=== PATIENT | male | born 1975 | race Caucasian/White ===

== ENCOUNTER 2020-08-29 13:48 | Emergency (ER) | payer OTHER, SELFPAY ==
--- NOTE | ~2020-08-29 | XR_ITS ---
XR chest 1V portable DATE: 08/29/2020 14:47 INDICATION: Fever TECHNIQUE: Portable AP chest on 08/29/2020 at 1445 hours COMPARISON: None FINDINGS: Normal heart size. No hilar or mediastinal enlargement. There is ill-defined density overlying the left upper lung and left lower lung mesa, suggesting lef t lung infiltrates. The right lung is clear. No pleural effusion. No hilar or mediastinal enlargement. IMPRESSION: Patchy left lung infiltrates are suggested, possibly pneumonia; follow up chest radiograp hs are recommended to assure clearing and exclude any pulmonary mass lesion Reviewed, dictated and finalized at location B. IMPRESSION: Patchy left lung infiltrates are suggested, possibly pneumonia; fol low up chest radiographs are recommended to assure clearing and exclude any pul monary mass lesion
[2020-08-29 13:57] VITALS: BP 143/82; PULSE 72; RESP 18; TEMP 36.1; O2SAT 98
--- NOTE | 2020-08-29 16:16 | ED.GENADULT ---
HPI - General Adult General Chief complaint: Upper Respiratory Infection Stated complaint: sick Time Seen by Provider: 08/29/20 14:35 Source: patient and RN notes reviewed Mode of arrival: ambulatory Limitations: no limitations History of Present Illness HPI narrative: Patient is a 44-year-old male who presents to emergency department for evaluation fever chills body aches for the last 3 days. Patient denies any other complaints has not taken anything for his symptoms. Patient denies any vomiting diarrhea URI symptoms patient notes he was exposed to a COVID-19 individual and has not been vaccinated himself. Related Data Allergies Allergy/AdvReac Type Severity Reaction Status Date / Time No Known Allergies Allergy Mild Unverified 08/31/08 16:10 Review of Systems Review of Systems: All systems reviewed & are unremarkable except as noted in HPI and below PMFSH Social History Social History (Updated 08/29/20 @ 16:19 by Juan Miguel Ledezma PA-C) Smoking status: Current every day smoker Exam Narrative: Exam Narrative: GENERAL: Well-appearing, well-nourished, and in no acute distress. HEAD: Normocephalic, atraumatic. EYES: PERRLA and EOMI. ENT: Nares clear, no rhinorrhea or epistaxis. Mucous membranes moist. Oropharynx without tonsillar hypertrophy exudate or other lesions. CHEST: Clear to auscultation. No respiratory distress. No wheezes rales or rhonchi HEART: Regular rate and rhythm. No murmur heard. Normal peripheral pulses. ABDOMEN: Soft, nontender, nondistended EXTREMITIES: Normal range of motion. No edema. SKIN: Warm, dry, no rash. NEURO: No focal deficits. Alert and oriented x3. Cranial nerves II through XII grossly intact PSYCH: Normal mood and affect. Course Course Emergency Course: Patient in the room no distress has been swabbed for Covid will be treated for pneumonia given the chest x-ray findings he is nontoxic afebrile will be managed on an outpatient basis Vital Signs Vital signs: Vital Signs Temperature 97 F L 08/29/20 13:57 Pulse Rate 72 08/29/20 13:57 Respiratory Rate 18 08/29/20 13:57 Blood Pressure 143/82 H 08/29/20 13:57 Pulse Oximetry 98 08/29/20 13:57 Temperature 97 F L 08/29/20 13:57 Pulse Rate 72 08/29/20 13:57 Respiratory Rate 18 08/29/20 13:57 Blood Pressure 143/82 H 08/29/20 13:57 Pulse Oximetry 98 08/29/20 13:57 Medical Decision Making MDM Narrative Medical decision making narrative: Patient swabbed for COVID-19 will be discharged on an outpatient basis is afebrile nontoxic-appearing no distress. Patient aware of his findings has been advised to get a pulse oximeter to watch his oxygen and will follow with primary care to obtain his COVID-19 results Vital Signs Vital Signs: Vital Signs Temperature 97 F L 08/29/20 13:57 Pulse Rate 72 08/29/20 13:57 Respiratory Rate 18 08/29/20 13:57 Blood Pressure 143/82 H 08/29/20 13:57 Pulse Oximetry 98 08/29/20 13:57 Temperature 97 F L 08/29/20 13:57 Pulse Rate 72 08/29/20 13:57 Respiratory Rate 18 08/29/20 13:57 Blood Pressure 143/82 H 08/29/20 13:57 Pulse Oximetry 98 08/29/20 13:57 Lab Data Labs: Lab Results 08/29/20 Range/Units 15:38 SARS-CoV-2 RNA (RT-PCR) Pending Imaging Data Radiologist's impression: ITS Impressions Chest X-Ray 08/29/20 14:51 IMPRESSION: Patchy left lung infiltrates are suggested, possibly pneumonia; follow up chest radiographs are recommended to assure clearing and exclude any pulmonary mass lesion Discharge Plan Discharge Clinical Impression: Pneumonia Patient Disposition: Home, Self-Care Condition: Stable Instructions: Antibiotic Form, Pneumonia (ED) Additional Instructions: Follow up with your primary care provider within 1-2 days to obtain your COVID-19 results. Go to ER for shortness of breath, difficulty breathing, chest pain, fever/chills, weakness, nauseau/vomitting, etc. or any other con
[2020-08-29 16:48] VITALS: PULSE 82; RESP 16; O2SAT 98
[2020-08-30 16:35] LABS: SARS-CoV-2 RNA PCR Positive
== END 2020-08-29 16:49 | disposition home or self-care (01) ==
PROVIDERS: Emergency Medicine Emergency Medical Services; Emergency Provider Emergency Medicine
DX: U07.1 COVID-19 (principal); J12.82 Pneumonia due to coronavirus disease 2019; F17.210 Nicotine dependence, cigarettes, uncomplicated
CPT/HCPCS: 71045; 99283; C9803; U0003; U0005

== ENCOUNTER → 2020-09-12 11:10 | Outpatient (CLI) | payer OTHER, SELFPAY ==
--- NOTE | ~2020-09-12 | XR_ITS ---
EXAMINATION: XR chest 2V 09/12/2020 11:29 INDICATION: Follow-up pneumonia PROCEDURE: 2 view chest COMPARISON: 07/30/2020 FINDINGS: The lungs are clear. The cardiomediastinal silhouette is within normal limits. There are no pleural effusions. There is no pneumothorax suspected. IMPRESSION: 1: NO ACUTE CARDIOPULMONARY DISEASE. Reviewed, dictated and finalized at location A.
== END ==
PROVIDERS: PCP Emergency Medicine; Visit Provider Emergency Medicine
DX: J18.9 Pneumonia, unspecified organism (principal)
CPT/HCPCS: 71046

== ENCOUNTER → 2020-09-15 06:59 | Outpatient (CLI) | payer OTHER, SELFPAY ==
[2020-09-15 18:52] LABS: SARS-CoV-2 RNA PCR Positive
== END ==
PROVIDERS: PCP Emergency Medicine; Visit Provider Emergency Medicine
DX: U07.1 COVID-19 (principal)
CPT/HCPCS: C9803; U0003; U0005

== ENCOUNTER 2020-11-13 08:53 | Outpatient (CLI) | payer OTHER, SELFPAY ==
--- NOTE | ~2020-11-13 | US_ITS ---
EXAMINATION: US right upper quadrant EXAM DATE: 11/13/2020 09:15 INDICATION: Elevated ALT TECHNIQUE: Multiple grayscale and Doppler images of the abdomen right upper quadrant were obtained (b y a technologist who performed the scan) and subsequently reviewed. There is no prior study for jaylyn shah. FINDINGS: The pancreatic head and body are normal in appearance. The pancreatic tail is not visualized. Mildl y echogenic liver parenchyma, hepatic steatosis. There are no focal liver lesions identified. Ther e is no evidence of intrahepatic biliary duct dilation. Portal venous flow was seen in the hepatoped al, normal direction and has normal Doppler waveform. No right-sided hydronephrosis. Common bile duct measures 3 mm, which is normal. The gallbladder wall is normal in thickness, with ex pected amount of distention. No sonographic evidence of pericholecystic fluid. There is no cholelit hiases. Technologist performing exam reports patient did not demonstrate sonographic Ann's sign. Please note that this sign is less reliable in patients who have received pain medication. IMPRESSION: Mild hepatic steatosis. Reviewed, dictated and finalized at location A. IMPRESSION: Mild hepatic steatosis.
== END 2020-11-13 08:54 | disposition home or self-care (01) ==
LOC: CHSIMG 08:55
PROVIDERS: PCP Emergency Medicine; Visit Provider Emergency Medicine
DX: R79.89 Other specified abnormal findings of blood chemistry (principal)
CPT/HCPCS: 76705

== ENCOUNTER 2021-08-07 13:19 | Emergency (ER) | payer OTHER, SELFPAY ==
--- NOTE | ~2021-08-07 | XR_ITS ---
EXAMINATION: XR wrist RT min 3V DATE: 08/07/2021 13:59 INDICATION: Right wrist injury. Fall. TECHNIQUE: 3 views of right wrist were obtained. COMPARISON: None. FINDINGS: There is a fracture at the carpometacarpal joint on the lateral view that is likely a fract ure of dorsal base of third metacarpal with 2 mm displacement. Other joint spaces are normal. IMPRESSION: 1. Fracture of dorsal base of third metacarpal. Reviewed, dictated and finalized at location A.
--- NOTE | ~2021-08-07 | XR_ITS ---
EXAMINATION: XR forearm RT 2V INDICATION: Right forearm pain TECHNIQUE: Two views of the right forearm are obtained. COMPARISON: None available FINDINGS: There is no fracture of the radius or ulna. Alignment at the wrist and elbow is normal. The re is a questionable heterotopic ossification projecting near the carpometacarpal junction on the lat eral view. IMPRESSION: 1. No acute osseous abnormality of the radius or ulna. 2. Possible fracture near the carpometacarpal junction on the lateral view. Dedicated wrist radiograp hs are recommended. Reviewed, dictated and finalized at location A. IMPRESSION: 1. No acute osseous abnormality of the radius or ulna. 2. Possible fracture near the carpometacarpal junction on the lateral view. Ded icated wrist radiographs are recommended.
--- NOTE | ~2021-08-07 | XR_ITS ---
EXAMINATION: XR hand RT min 3V INDICATION: Right hand pain TECHNIQUE: Three views of the right hand are obtained. COMPARISON: None available FINDINGS: There is soft tissue swelling of the hand. Bone alignment is normal. No fracture is identif ied. The joint spaces are normal. No radiopaque foreign body is seen. IMPRESSION: 1. Diffuse soft tissue swelling of the hand without acute osseous abnormality identified. Reviewed, dictated and finalized at location A. IMPRESSION: 1. Diffuse soft tissue swelling of the hand without acute osseous abnormality i dentified.
--- NOTE | 2021-08-07 13:26 | ED.UPPEXIN ---
HPI - Extremity Injury (Upper) General Chief Complaint: Extremity Injury, Upper Stated Complaint: Right Hand Pain Time Seen by Provider: 08/07/21 13:28 Source: patient and RN notes reviewed Mode of arrival: ambulatory Limitations: no limitations History of Present Illness HPI narrative: 45-year-old male presents to the [facility] with complaints of right forearm, wrist and hand pain after tripping and falling onto that hand yesterday. Patient states that he was running tripped, landed on a fist yesterday. Decreased range of motion of the 5 fingers due to pain and swelling. Swelling noted to the dorsal aspect of right hand. MD complaint: injury to: right and hand Related Data Home Medications Medication Instructions Recorded Confirmed aspirin 81 mg chewable tablet tablet 08/07/21 hydrochlorothiazide 25 mg tablet tablet 08/07/21 naproxen 500 mg tablet tablet 08/07/21 nitroglycerin 0.4 mg sublingual tablet 08/07/21 tablet Allergies Allergy/AdvReac Type Severity Reaction Status Date / Time No Known Allergies Allergy Mild Verified 08/07/21 13:27 Review of Systems Review of Systems: All systems reviewed & are unremarkable except as noted in HPI and below Constitutional: Constitutional: Reports no additional constitutional complaints, Denies chills and Denies fever(s) Eyes: Eyes: Reports no additional eye complaints ENT: Reports system reviewed and no additional complaints, except as documented Cardiovascular: Cardiovascular: Reports no additional cardiovascular complaints Respiratory: Respiratory: Reports no additional respiratory complaints Gastrointestinal: Gastrointestinal: Reports no additional gastrointestinal complaints Musculoskeletal: Musculoskeletal: Reports as per HPI, Reports arthralgias and Reports joint swelling Integumentary/Breasts: Skin/Breast: Reports system reviewed and no additional complaints, except as docu Neurologic: Reports system reviewed and no additional complaints, except as documented Psychiatric: Psychiatric: Reports no additional psychiatric complaints Allergic/Immunologic: Allergic/Immunologic: Reports no additional allergic/immunologic complaints [facility] Past Medical History Medical History (Updated 08/07/21 @ 19:35 by Venessa Gomez APRN) No significant medical problems Surgical History Surgical History (Updated 08/07/21 @ 19:33 by Venessa Gomez APRN) No pertinent past surgical history Social History Social History Smoking status: Current every day smoker Comments At the time of my signature, I reviewed and agree with the nursing past medical, surgical, social, and family history. There is no relevant family history pertinent to the patient complaint. Exam Const: General: healthy appearing, no acute distress and alert Nutritional Appearance: well nourished and obese Orientation/consciousness: patient oriented x3 Limitations: no limitations HENMT: Head: normal to inspection Ears: external ears normal Eyes: General: appearance normal, both eyes and all related structures Pupils: Equal, round and reactive pupils present Neck: Neck: normal visual inspection, no lymphadenopathy and no meningeal signs Chest: Chest palpation & inspection: normal inspection of the chest Resp: Effort & Inspection: normal respiratory effort and no use of accessory muscles Auscultation: clear to auscultation bilaterally, no crackles, no rales, no rhonchi and no wheezes Cardio: Rate: regular rate Rhythm: regular rhythm Back/Spine/Pelvis: Cervical Spine: normal cervical lordosis Thoracic/Lumbar Spine: thoracic and lumbar spine normal to inspection Skin: General skin exam: normal color Rashes: no rashes Wounds: no wounds Neuro: General: patient oriented x3, moves all extremities, no meningeal signs and no focal motor deficits Cranial nerves: Yes Equal, round and reactive pupils present Speech: normal speech Gai
[2021-08-07 13:28] VITALS: BP 130/66; PULSE 89; RESP 20; TEMP 36.7; O2SAT 97
== END 2021-08-07 14:43 | disposition home or self-care (01) ==
PROVIDERS: Emergency Provider Nurse Practitioner
DX: S62.312A Displaced fracture of base of third metacarpal bone, right hand, initial encounter for closed fracture (principal); W01.0XXA Fall on same level from slipping, tripping and stumbling without subsequent striking against object, initial encounter; F17.200 Nicotine dependence, unspecified, uncomplicated
CPT/HCPCS: 29125; 73090; 73110; 73130; 99214; A4565; G0463

== ENCOUNTER 2021-08-25 10:11 | Outpatient (CLI) | payer OTHER, SELFPAY ==
--- NOTE | ~2021-08-25 | CT_ITS ---
EXAMINATION: CT wrist RT wo con DATE: 08/25/2021 10:36 INDICATION: Fracture of hamate and third metacarpal base. TECHNIQUE: Computed tomography (CT) of the right wrist was performed without intravenous contrast. Au tomated exposure control and iterative reconstruction technique were employed. The dose-length produc t was 531.78 mGy-cm. COMPARISON: Right wrist radiograph 08/07/2021 FINDINGS: There is a fracture of dorsal base of third metacarpal involving approximately 1/3 of the a rticular surface. The dorsal fracture fragment demonstrates 2 mm dorsal displacement and mild rotatio n. There is a punctate chip fracture of dorsal base of second metacarpal. There are chip fractures of the dorsal distal aspects of the capitate and hamate. There is mild osteoarthritis of first carpomet acarpal joint and first metacarpophalangeal joint. IMPRESSION: 1. Fractures of the dorsal bases of second and third metacarpals and the dorsal distal aspects of cap itate and hamate. Reviewed, dictated and finalized at location A. IMPRESSION: 1. Fractures of the dorsal bases of second and third metacarpals and the dorsal distal aspects of capitate and hamate.
== END 2021-08-25 10:12 | disposition home or self-care (01) ==
LOC: ANHIMG 10:16
PROVIDERS: Visit Provider Plastic Surgery
DX: S62.141D Displaced fracture of body of hamate [unciform] bone, right wrist, subsequent encounter for fracture with routine healing (principal); X58.XXXD Exposure to other specified factors, subsequent encounter
CPT/HCPCS: 73200

== ENCOUNTER 2021-09-11 00:15 | Day surgery (SDC) | payer OTHER, SELFPAY ==
[2021-09-07 14:05] VITALS: BMI 40.6
--- NOTE | 2021-09-07 14:10 | PC.NURSE ---
Report to the Outpatient Waiting Room, entrance under the green pavilion located off [facility], at time 0600 on date 09/11/21. OR Time: 0730. - You and your visitor will be asked a series of questions to screen for COVID 19 for your protection. - Only one visitor is allowed at this time. - The patient visitor is requested to leave or wait in car when not with patient. - A mask is required within the hospital. Patients may have clear liquids (water, carbonated beverages, clear teas, apple juice) until 3 hours prior to surgery with a maximum of 20 ounces. - No food from midnight until time of surgery Take the following medications with a SIP of water the morning of surgery: N/A Medications to discontinue per physician: N/A Date to take last dose: N/A Please no make-up, nail bengali, hairspray, perfume, deodorant, or body powder the day of surgery. No jewelry (including any body piercings) or valuables the day of surgery, leave them at home. Please take a shower or bath the night before, or the morning of, surgery with an antibacterial soap. Wear comfortable, loose fitting clothing. - Jewelry must be removed prior to entering the operating room. Rings and piercings that are not removed may be cut off. - The hospital will not accept responsibility for valuables. - Please leave all valuables, including medications, at home the day of surgery. If you are going home after surgery, a licensed production truck driver must drive you home. - NO public transportation without another adult. - We recommend that an adult stay with you for 24 hours following discharge. - We also recommend that you do not drive, make important decision, drink alcoholic beverages, or take any drugs that were not prescribed by your health care provider for at least 24 hours after your discharge time. Follow any additional instructions given to you from your surgeon. If you or anyone in your household have experienced Covid symptoms in the past week, please notify your surgeon or the nurse liaison at the phone number below for possible testing. Telephone instructions given to PT - NORAH CONTRERAS and asked if any additional questions and then verbalized understanding. Patient advised to call surgeon office or pre surgery nurse liaison [phone] if any additional questions.
[2021-09-11] VITALS (7 sets, daily range): BP systolic 115–134; BP diastolic 57–91; PULSE 69–91; RESP 12–20; TEMP 36.3–36.6; O2SAT 94–98
--- NOTE | ~2021-09-11 | XR_ITS ---
EXAMINATION: XR surgery orthopedic DATE: 09/11/2021 11:10 INDICATION: Right hand fracture for open reduction and internal fixation. TECHNIQUE: Single fluoroscopic spot images and 20 radiographs of the right hand were obtained during procedure performed by Dr. Negrete. Radiologist was not present for the imaging or procedure. The amoun t of fluoroscopy time used during this procedure was 1.2 minutes. COMPARISON: Radiographs dated 08/07/[address] dated 09/04/2021 FINDINGS: Initial images demonstrate a needle marking the site of the previous noted mildly displaced fracture at the base of the third metacarpal. Subsequent images demonstrate open reduction and internal fixati on of the fracture with a dorsal plate and screws. Alignment appears near-anatomic at the conclusion of the fixation also assessment is somewhat limited due to superimposition of multiple bony shadows r egardless of the plantar projection. <1 mm residual lucency along the fracture plane. Additional tiny fractures are seen noted along the dorsal rim of the distal articular surface of the capitate and perez mate are unable to be visualized in the current study. No other fractures identified. Mild osteoarthr itis at the first carpometacarpal, first metacarpophalangeal and a few interphalangeal joints. IMPRESSION: 1. Near-anatomic alignment post open reduction and dorsal plate and screw fixation of an intra-articu lar fracture at the base of the third metacarpal. Reviewed, dictated and finalized at location A. IMPRESSION: 1. Near-anatomic alignment post open reduction and dorsal plate and screw fixat ion of an intra-articular fracture at the base of the third metacarpal.
[2021-09-11] MEDS: ACETAMINOPHEN 500 MG TABLET 1000 MG PO (06:15)
--- NOTE | 2021-09-11 06:44 | WPDANESEPPF ---
Anes - Initial Pre Proc Eval Procedure: Operation Date: 09/11/21 07:30 Proposed Procedures p Open Reduction Internal Fixation Right Third Metacarpal Base - Edvin Negrete MD Date/Time: 09/11/21 06:44 Surgeon: Edvin Negrete MD Pre Op Diagnosis: fx rt 3rd metacarpal base Patient Data Age: 46 Gender: M Height: 1.83 m Weight: 136.08 kg Allergies Allergy/AdvReac Type Severity Reaction Status Date / Time No Known Allergies Allergy Mild Verified 09/07/21 14:04 Home Medications Medication Instructions Recorded Confirmed Type No Home Medications 09/07/21 09/11/21 History Patient hx anesthesia problems: none Family hx anesthesia problems: none Results Review: All pre-operative results and documents have been reviewed as part of the pre-operative evaluation. [facility] Past Medical History Medical History (Updated 09/11/21 @ 06:45 by Srini De La Rosa MD) GERD (gastroesophageal reflux disease) Morbid obesity No significant medical problems Smoker Snoring Social History Social History Smoking packs per day: 1 Smoking cigarettes per day: 20.0 Years smoked: 18 Smoking pack-years: 18.00 Smoking status: Current every day smoker Tobacco type: cigarettes Alcohol intake: current Alcohol use details: 4/MONTH Substance use: current Substance use type: marijuana Living arrangements: with family Spiritual care concerns: No Anes - Eval Final PreProcedure Day of Procedure 09/11/21 06:44 Patient weight: morbidly obese Heart: regular rate and rhythm Lungs: clear to auscultation Airway: Mallampati scale class II Neurological: alert and oriented Last oral intake: >/= 8 hours ASA classification: III Emergent: no Anesthesia type and monitoring: general LMA and standard monitoring Results Review: All pre-operative results and documents have been reviewed as part of the pre-operative evaluation. Informed Consent: The patient's anesthetic plan and its attendant risks and benefits were discussed with the patient/family/POA. Questions were solicited and answers provided to the satisfaction of the patient/family/POA.
[2021-09-11] MEDS: LACTATED RINGERS 1,000 ML 30 ML IV CONT ×2 (07:11→10:52)
[2021-09-11] MEDS: KETOROLAC 15 MG/ML VIAL (*BKC) IV PUSH (07:11)
--- NOTE | 2021-09-11 07:19 | WPDHPUPDATE1 ---
History and Physical Update Update Date/Time: 09/11/21 07:19 History and Physical has been reviewed, including an updated exam of the patient. There are NO changes in the patient's condition. Risks, benefits, and alternatives have been discussed and questions answered. Patient agrees to proceed with procedure.
[2021-09-11] MEDS: ceFAZolin SODIUM 1 GM VIAL IV PUSH (07:25)
[2021-09-11] MEDS: ceFAZolin 2 GM/D5W 50 ML 2 GM/50 ML BAG IVPB (07:25)
[2021-09-11] MEDS: LIDO 1%/EPINEPHRINE 1:100,000 10 ML VIAL INFILTRATE (10:29)
[2021-09-11] MEDS: BUPIVACAINE/EPINEPHRINE 0.25% 50 ML VIAL INFILTRATE (10:42)
--- NOTE | 2021-09-11 11:02 | PM.OP ---
Procedure Note - Brief Procedure Note - Brief Date of procedure: 09/11/21 Pre-op diagnosis: fx rt 3rd metacarpal base Post-op diagnosis: Same Procedure performed: Open reduction with fixation the right 3rd metacarpal base fracture Implants: Modular handset 2 mm Y plate with 5 screws Anesthesia: BLAZEA Surgeon: Edvin Negrete MD Sheep Shearer: Axia Estimated blood loss (mL): 20 Tourniquet time (min): 130 Drains: No Packing: No Pathology: None sent Complications: No immediate complications Condition: Stable Disposition: PACU
[2021-09-11] MEDS: fentaNYL CITRATE INJ (*CRX) 100 MCG/2 ML VIAL 25 MCG IV PUSH ×3 (11:03→11:09)
[2021-09-11] MEDS: oxyCODONE HCL (*CRX) 5 MG TAB IR PO (11:54)
--- NOTE | 2021-09-11 12:12 | SUR.PHASEII ---
PT SAID HIS DRESSINGS WERE A LITTLE TIGHT. THIS NURSE LIGHTLY LOOSENED HIS DRESSING, PT SAID IT FELT BETTER AFTER DRESSING ADJUSTMENT.
--- NOTE | 2021-09-11 12:46 | W.PM.PROC2 ---
Procedure Note - Detailed Date of Procedure 09/11/21 Pre-op Diagnosis fx rt 3rd metacarpal base Post-op Diagnosis Same Procedure Performed Open reduction with internal plate fixation of the closed displaced fracture of the right 3rd metacarpal base Surgeon Edvin Negrete MD Wood Drilling Machine Operator Kateryna Anesthesia General Description of Procedure The right dorsal hand fracture site was marked on the patient's hand in the holding area. He was then taken into the operating room where he was placed supine on the operating table. General anesthesia was administered. The right upper extremity was prepped and draped in the usual fashion. The image intensifier was brought to the hand table and the fracture site was identified with the use of 25 gauge needle. The fracture the was not clearly appreciated in these views. But the CT scan been reviewed just prior to the case. The area was locally infiltrated with 1% lidocaine with epinephrine. A transverse incision was marked and chosen for access. Later in the case a T extension running distally was included. The extremity was exsanguinated with a 4 in Sorin wrap and the tourniquet inflated to 250 mmHg. Dissection between the tendons over the 3rd metacarpal revealed a small hematoma the capsule was incised and cleared away from the base of the 3rd metacarpal. The fracture was identified running transversely across the dorsal base of the 3rd metacarpal and extended vertically to a volar lip on the palmar cortex of the shaft. The metacarpal capitate joint was visible. I did not encounter additional fracture fragments. Fibrous tissue from within the fracture was cleared with a 15 blade and Taiwo imelda. The fragment remained well attached to soft tissue proximally. I chose the 2 mm plate from modular hand tray. The two hole Y end of the plate was fixed to the fracture fragment with 2 2 mm screws. I had switched from C-arm imaging to intraoperative digital x-rays which showed far better detail. Nevertheless I had trouble interpreting the radiologic findings and the intraoperative findings in view of the previously reviewed CT scan. At approximately the 90 minutes yareli the tourniquet was released and I left to consult with Dr. Schmitz in Radiology. We felt that the previous x-rays did in fact represent the operative findings. The new findings also seem to confirm that the 2 screws that had been placed by that time were in the fracture fragment and not impinging upon the capitate.Three screws were then placed in the metacarpal shaft the middle 1 was positioned distally to compress the fracture as the screw tightened. This appeared to be a successful maneuver. Two additional bicortical screws were placed. Passive flexion and extension of the wrist was not impeded by our intervention. The surgical site was irrigated the tourniquet was released a 2nd time at approximately 34 minutes. No sutures were placed in the capsule. The wound was repaired with interrupted intradermal 4-0 Monocryl sutures. A soft padded bandage was applied around metacarpals and wrist secured with Coban. The patient was awakened and discharged from the operating room in stable condition. The patient had been given 1000 mg of Tylenol p.o. preoperatively along with 15 mg of Toradol And 3 g of Ancef. Prior to application of the bandage 10 milliliter of 0.25% Marcaine epinephrine were infiltrated at and proximal to the operative site. E prescriptions were completed for ibuprofen 600 mg Q 6 hours and Percocet 5/325 Q 6 hours 10 as needed for pain Implants a tailored 6 hole 2 mm plate and 6 2 mm screws Estimated Blood Loss 20 Tourniquet Time 134 Drains No Packing No Pathology None sent Complications No immediate complications Condition Stable Disposition PACU
== END 2021-09-11 12:22 | disposition home or self-care (01) ==
PROVIDERS: PCP Emergency Medicine; Visit Provider Plastic Surgery
PROC: (CPT 26615; principal; 2021-09-11 07:30)
DX: S62.312A Displaced fracture of base of third metacarpal bone, right hand, initial encounter for closed fracture (principal); W22.09XA Striking against other stationary object, initial encounter; F17.210 Nicotine dependence, cigarettes, uncomplicated; F12.90 Cannabis use, unspecified, uncomplicated; E66.01 Morbid (severe) obesity due to excess calories; Z68.41 Body mass index [BMI] 40.0-44.9, adult
CPT/HCPCS: 26615; 99199; A9270; C1713; J0690; J1100; J1885; J2250; J2405; J2704; J3010; J7120

== ENCOUNTER 2021-11-06 12:30 | Outpatient (RCR) | payer OTHER, SELFPAY ==
--- NOTE | 2021-10-10 10:18 | OTOPEVAL ---
OCCUPATIONAL THERAPY INITIAL EVALUATION REPORT 10/10/21 Thank you for referring Bossman López to [facility].? The patient is scheduled to be seen for therapy? 1x/week for 4 weeks. Please review, sign, date and return this plan of care BEKAH. I agree with and certify that the following plan of care is medically necessary. Referring Physician Date Referring Provider: Evdin Negrete MD *OT Outpatient Evaluation Start: 10/10/21 09:31 Neurological History Hx Neurological Disorders No Significant History Cardiovascular History Hx Cardiac Disorders No Significant History Respiratory History Hx COVID-19 Yes: 2020 Gastrointestinal History Hx Gastrointestinal Disorders No Significant History Genitourinary History Hx Genitourinary Disorders No Significant History Musculoskeletal History Hx Fractures Yes: RT HAND Hematological History Hx Hematological Disorders No Significant History Endocrine History Hx Endocrine Disorders No Significant History HEENT History Hx HEENT Disorders No Significant History Integumentary History Hx Skin Disorders No Significant History Reproductive History Hx Reproductive Disorders No Significant History Psychosocial History Hx Psychiatric Disorders No Significant History Pain History History of Any Previous or Ongoing No Significant History Instance of Pain Anesthesia History Hx Anesthesia Reactions No Significant History Evaluation Information Problem Diagnosis Swelling and stiffness of right hand Additional Evaluation Detail s/p ORIF right 3rd metacarpal with plate 09/11/21 Subjective Information Patient is right hand dominant. Query Text:As Reported By Patient/ Reports difficulties with Family any heavy lifting. He states he has been primarily driving with his left hand due to stiffness, pain, and weakness in the right. Pain Scale Pain Scale Used Numeric (1 - 10) Self Report Pain Assessment Right Hand(s) Reported Pain Level 0 Lowest Pain Intensity 0 Greatest Pain Intensity 7 Pain Aggravating Factors Lifting Pain Score Pain Score 0: Self Report Upper Extremity Range of Motion Wrist Range of Motion Right Wrist Flexion - Active 65 Wrist Extension - Active 30 Wrist Radial Deviation - Active 10 Wrist Ulnar Deviation - Active 25 Wrist Range of Motion Comments Compared to left: - flexion 75 deg. - ext 65 deg. - RD 25 deg. - UD 30 deg. Finger Range o
--- NOTE | 2021-11-06 13:03 | OTOPDC ---
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 He reports some residual stiffness in the wrist and index finger MCP joints. Reported Pain Level Pain Score 0: Self Report Additional Pain Score Comments Reporting no pain, just stiffness. Assessment OT Clinical Summary Bossman is a 46 year-old, right handed male who is 8 weeks s/p ORIF of the right 3rd metacarpal. He is no longer having pain, just reports of stiffness and reports no functional deficits with hand use at this time. He continues to have residual weakness in the wrist that restricts his return of wrist extension (measuring only 40 degrees today, compared to 65 on the contralateral side). 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 At this time he is independent with HEP to continue to work on these weak areas. No further skilled OT is indicated at this time. Plan of Care OT Services Indicated No
== END 2021-11-07 10:14 | disposition home or self-care (01) ==
LOC: ANHOT 12:30
PROVIDERS: PCP Emergency Medicine; Referring Provider Plastic Surgery; Visit Provider Plastic Surgery
DX: Z47.89 Encounter for other orthopedic aftercare (principal); M79.89 Other specified soft tissue disorders; M25.641 Stiffness of right hand, not elsewhere classified
CPT/HCPCS: 97018; 97110; 97165